=== PATIENT | male | born 1970 | race Two or more races ===

== ENCOUNTER 2021-09-25 13:12 | Emergency (ER) | payer OTHER ==
[~2021-09-25] VITALS: Ht 170.2 cm; Wt 85.3 kg
[2021-09-25] MEDS ORDERED: BUTALBIT-ACETA1 EACH PO (17:01)
== END 2021-09-25 17:10 ==
LOC: ER 13:12
DX: G43.819 Other migraine, intractable, without status migrainosus (principal); H53.8 Other visual disturbances

== ENCOUNTER 2023-05-05 17:10 | Emergency (ER) | payer OTHER ==
[~2023-05-05] VITALS: Ht 167.6 cm; Wt 86.2 kg
[~2023-05-05 17:10] MED LIST: BUTALBIT-ACETA1 EACH PO
[2023-05-05] MEDS ORDERED: COZAAR50 MG PO (18:05)
== END 2023-05-05 19:51 | disposition home or self-care (01) ==
LOC: ER 17:10
DX: I10 Essential (primary) hypertension (principal)